=== PATIENT | female | born 1940 | race Caucasian/White ===

== ENCOUNTER 2021-10-09 15:04 | Outpatient (CLI) | payer MEDICARE | END 2021-10-09 15:05 | disposition home or self-care (01) | LOC: CSHMRI 15:04 | PROVIDERS: ATTEND Family Medicine | DX: R25.1 Tremor, unspecified (principal) | CPT/HCPCS: 70551 ==

== ENCOUNTER 2022-03-09 08:24 | Outpatient (CLI) | payer MEDICARE | END 2022-03-09 08:25 | disposition home or self-care (01) | LOC: CSHMAMMO 08:24 | PROVIDERS: ATTEND Family Medicine | DX: Z12.31 Encounter for screening mammogram for malignant neoplasm of breast (principal) | CPT/HCPCS: 77063; 77067 ==

== ENCOUNTER 2023-03-11 09:13 | Outpatient (CLI) | payer MEDICARE | END 2023-03-11 09:14 | disposition home or self-care (01) | LOC: CSHMAMMO 09:13 | PROVIDERS: ATTEND Family Medicine | DX: Z12.31 Encounter for screening mammogram for malignant neoplasm of breast (principal) | CPT/HCPCS: 77063; 77067 ==

== ENCOUNTER 2024-03-13 08:33 | Outpatient (CLI) | payer MEDICARE | END 2024-03-13 08:34 | disposition home or self-care (01) | LOC: CSHMAMMO 08:33 | PROVIDERS: ATTEND Family Medicine | DX: Z12.31 Encounter for screening mammogram for malignant neoplasm of breast (principal) | CPT/HCPCS: 77063; 77067 ==

== ENCOUNTER 2025-04-24 11:31 | Outpatient (CLI) | payer MEDICARE | END 2025-04-24 11:32 | disposition home or self-care (01) | LOC: CSHMAMMO 11:31 | PROVIDERS: ATTEND Family Medicine | DX: Z12.31 Encounter for screening mammogram for malignant neoplasm of breast (principal) | CPT/HCPCS: 77063; 77067 ==